=== PATIENT | male | born 2005 | race Two or more races ===

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

== ENCOUNTER → 2025-06-25 | Outpatient (CLI) | payer MEDICAID, SELFPAY ==
--- NOTE | 2025-06-25 13:44 | XR_ITS ---
Examination: Lumbar spine, 5 views Technique: Lumbar spine AP, lateral, coned lateral lower lumbar spine, bilateral obliques 5 views Exam date and time: June 25, 2025, 1443 hours INDICATIONS: Low back pain beginning 5 months ago. FINDINGS: Normal bone density. No significant facet arthropathy No lumbar fracture. Mild disc narrowing L5-S1 which may be developmental No spondylolisthesis IMPRESSION: Mild disc narrowing L5-S1, which may be developmental
== END | disposition home or self-care (01) ==
PROVIDERS: PCP Physician Assistant; Referring Provider Physician Assistant; Visit Provider Physician Assistant
DX: M51.370 Other intervertebral disc degeneration, lumbosacral region with discogenic back pain only (principal)
CPT/HCPCS: 72110